=== PATIENT | female | born 1945 | race Caucasian/White ===

== ENCOUNTER 2020-09-11 22:47 | Inpatient (IN) | payer MEDICAID ==
[~2020-09-11] VITALS: Ht 157.5 cm; Wt 91.2 kg
[2020-09-11] MEDS ORDERED: ONDANSETRON 4MG ODT PO ONE (23:15)
[2020-09-11] MEDS ORDERED: HYDROCODONE/ACETAMINOPHEN 5/325MG TABLET PO ONE (23:15)
[2020-09-12] MEDS ORDERED: MORPHINE SULFATE 4 MG/ML CPJ (NOT FOR IM USE) IV ONE (04:00)
[2020-09-12] MEDS ORDERED: CEFTRIAXONE 1 G PREMIX 50 ML IV ONE (05:45)
[2020-09-12] MEDS ORDERED: AZITHROMYCIN 500 MG in DEXT 5% WATER 250 ML IV SCH (05:45)
[2020-09-12 08:19] LABS: BASOPHILS % 0.2 % (0.0-2.0); HEMOGLOBIN. 10.6 g/dL (12.0-16.0); MEAN CORPUSCULAR HEMOGLOBIN 28.8 pg (28.0-32.0); MEAN CORPUSCULAR VOLUME 86.6 fL (81.0-99.0); MEAN PLATELET VOLUME 8.6 fl (7.4-10.4); MONOCYTES % 6.4 % (2.0-8.0); NEUTROPHILS % 80.4 % (40.0-76.0); PLATELET 214 x1000/uL (130-400); RED BLOOD CELL COUNT 3.69 mill/uL (4.2-5.4); RED CELL DISTRIBUTION WIDTH 13.7 % (11.6-14.6)
[2020-09-12 08:21] LABS: CHLORIDE 104 mEq/L (98-107)
[2020-09-12 10:15] VITALS: BP 137/78
[2020-09-12] MEDS ORDERED: GINK120C PO (10:43)
[2020-09-12] MEDS ORDERED: LOSA50TA41 MT (10:43)
[2020-09-12] MEDS ORDERED: MELA5TAB19 MT (10:43)
[2020-09-12] MEDS ORDERED: METF500S7 PO (10:43)
[2020-09-12] MEDS ORDERED: TOPUD MT (10:43)
[2020-09-12] MEDS ORDERED: RISP0.2514 PO (10:43)
[2020-09-12] MEDS ORDERED: DONE23TA3 MT (10:43)
[2020-09-12] MEDS ORDERED: OLAN5TAB26 PO (10:43)
[2020-09-12 11:25] VITALS: BP 137/78
[2020-09-12] MEDS ORDERED: DEXTROSE 50% WATER 50ML SYRINGE IV PRN (11:45)
[2020-09-12 12:00] VITALS: BP 120/57
[2020-09-12] MEDS: INSULIN LISPRO 100 UNITS/ML SUBCUT SCH ×3 (12:05→21:00)
[2020-09-12] MEDS: BLOOD SUGAR DIAGNOSTIC STRIP TEST SCH ×3 (12:05→21:11)
[2020-09-12] MEDS: OLANZAPINE 5MG TABLET PO SCH (12:16)
[2020-09-12] MEDS: LOSARTAN POTASSIUM 50 MG TABLET PO SCH (12:16)
[2020-09-12] MEDS: MORPHINE SULFATE 2 MG/ML CPJ (NOT FOR IM USE) IV PRN ×2 (12:17→21:48)
[2020-09-12 16:00] VITALS: BP 119/65
[2020-09-12 20:00] VITALS: BP 113/50
[2020-09-12] MEDS: RISPERIDONE 0.25MG TABLET PO SCH ×2 (21:00→21:49)
[2020-09-13] VITALS: BP 114/60
[2020-09-13 04:00] VITALS: BP 103/54
[2020-09-13] MEDS: BLOOD SUGAR DIAGNOSTIC STRIP TEST SCH ×4 (06:20→20:28)
[2020-09-13] MEDS: INSULIN LISPRO 100 UNITS/ML SUBCUT SCH ×4 (06:32→20:29)
[2020-09-13] MEDS: MORPHINE SULFATE 2 MG/ML CPJ (NOT FOR IM USE) IV PRN ×2 (06:32→13:45)
[2020-09-13] MEDS ORDERED: BACITRACIN 15GM TUBE TOP ONE (07:11)
[2020-09-13] MEDS ORDERED: BUPIVACAINE HCL/PF 0.25% (2.5MG/ML) 10ML ONE ×2 (07:11→09:20)
[2020-09-13] MEDS ORDERED: VANCOMYCIN HCL 1 GM/VIAL ONE (07:11)
[2020-09-13] MEDS ORDERED: ONDANSETRON HCL 4MG/2ML INJ ONE (08:33)
[2020-09-13] MEDS ORDERED: PROPOFOL 200MG/20ML VIAL IV ONE (08:33)
[2020-09-13] MEDS ORDERED: SUCCINYLCHOLINE CHLORIDE 200MG/10ML IV ONE (08:33)
[2020-09-13] MEDS ORDERED: ROCURONIUM BROMIDE 10MG/ML VIAL 5ML IV ONE (08:33)
[2020-09-13] MEDS ORDERED: CEFAZOLIN SODIUM 1000MG/VIAL ONE (08:33)
[2020-09-13] MEDS ORDERED: GLYCOPYRROLATE 0.2 MG/ML 2ML VIAL ONE (08:33)
[2020-09-13] MEDS ORDERED: NEOSTIGMINE METHYLSULFATE 1MG/ML 10 ML VIAL ONE (08:33)
[2020-09-13] MEDS ORDERED: PHENYLEPHRINE HCL 10 MG/ML 1ML (IV VIAL) IV ONE (08:33)
[2020-09-13] MEDS ORDERED: SODIUM CHLORIDE 0.9% 10ML VIAL ONE (08:33)
[2020-09-13] MEDS ORDERED: EPHEDRINE SULFATE 50MG/ML VIAL ONE (08:33)
[2020-09-13] MEDS ORDERED: METOCLOPRAMIDE HCL 10MG/2ML VIAL ONE (08:33)
[2020-09-13] MEDS ORDERED: FENTANYL CITRATE/PF 50MCG/ML 2ML VIAL ONE (08:33)
[2020-09-13] MEDS ORDERED: MIDAZOLAM HCL 2 MG/2 ML VIAL ONE (08:33)
[2020-09-13] MEDS: LOSARTAN POTASSIUM 50 MG TABLET PO SCH (09:00)
[2020-09-13] MEDS: OLANZAPINE 5MG TABLET PO SCH (09:00)
[2020-09-13] MEDS ORDERED: MORPHINE SULFATE 2 MG/ML CPJ (NOT FOR IM USE) IV PRN (09:45)
[2020-09-13] MEDS ORDERED: SODIUM CHLORIDE 0.9% 1,000 ML IV ONE (09:45)
[2020-09-13] MEDS ORDERED: MEPERIDINE HCL/PF 25MG/ML CPJ IV PRN (09:45)
[2020-09-13] MEDS ORDERED: ONDANSETRON HCL 4MG/2ML INJ IV PRN (09:45)
[2020-09-13] MEDS ORDERED: HYDROMORPHONE HCL/PF 2MG/ML CPJ IV PRN (09:45)
[2020-09-13 12:00] VITALS: BP 126/63
[2020-09-13] MEDS: CEFAZOLIN 2,000 MG in DEXT 5% WATER 100 ML IV SCH (14:28)
[2020-09-13 16:00] VITALS: BP 140/58
[2020-09-13] MEDS: DOCUSATE SODIUM 100MG CAPSULE PO SCH (17:00)
[2020-09-13] MEDS: KETOROLAC 30MG/ML VIAL IV PRN (18:24)
[2020-09-13 19:16] LABS: CLARITY URINE CLEAR (CLEAR); COLOR URINE YELLOW (YELLOW); KETONES URINE NEGATIVE (NEGATIVE); LEUKOCYTE ESTERASE URINE NEGATIVE (NEGATIVE); NITRITE URINE NEGATIVE (NEGATIVE); OCCULT BLOOD URINE 1+ (NEGATIVE); PH URINE 5.5 (4.5-8.0); PROTEIN URINE 1+ (NEGATIVE); SPECIFIC GRAVITY URINE 1.024 (1.005-1.030); UROBILINOGEN URINE 0.2 E.U./dL (0.2-1.0)
[2020-09-13 20:00] VITALS: BP 113/53
[2020-09-13] MEDS: RISPERIDONE 0.25MG TABLET PO SCH (20:29)
[2020-09-14] VITALS: BP 105/66
[2020-09-14] MEDS: CEFAZOLIN 2,000 MG in DEXT 5% WATER 100 ML IV SCH ×4 (00:02→21:01)
[2020-09-14 04:00] VITALS: BP 140/50
[2020-09-14] MEDS: BLOOD SUGAR DIAGNOSTIC STRIP TEST SCH ×4 (05:21→21:01)
[2020-09-14] MEDS: INSULIN LISPRO 100 UNITS/ML SUBCUT SCH ×4 (05:42→21:00)
[2020-09-14 08:00] VITALS: BP 115/43
[2020-09-14] MEDS: LOSARTAN POTASSIUM 50 MG TABLET PO SCH ×2 (09:09→09:18)
[2020-09-14] MEDS: OLANZAPINE 5MG TABLET PO SCH (09:09)
[2020-09-14] MEDS: DOCUSATE SODIUM 100MG CAPSULE PO SCH ×2 (09:10→17:19)
[2020-09-14] MEDS: ACETAMINOPHEN 325MG TABLET PO PRN ×2 (09:17→17:40)
[2020-09-14 12:00] VITALS: BP 109/55
[2020-09-14] MEDS: KETOROLAC 30MG/ML VIAL IV PRN ×2 (14:17→20:51)
[2020-09-14 16:00] VITALS: BP 96/36
[2020-09-14 20:00] VITALS: BP 107/52
[2020-09-14] MEDS: RISPERIDONE 0.25MG TABLET PO SCH (20:50)
[2020-09-14] MEDS: ENOXAPARIN 40MG/0.4ML SYR SUBCUT SCH (21:05)
[2020-09-15] VITALS (7 sets, daily range): BP systolic 110–122; BP diastolic 39–56
[2020-09-15] MEDS: CEFAZOLIN 2,000 MG in DEXT 5% WATER 100 ML IV SCH ×3 (05:44→20:41)
[2020-09-15] MEDS: BLOOD SUGAR DIAGNOSTIC STRIP TEST SCH ×4 (05:44→20:43)
[2020-09-15] MEDS: INSULIN LISPRO 100 UNITS/ML SUBCUT SCH ×4 (05:45→20:43)
[2020-09-15] MEDS: OLANZAPINE 5MG TABLET PO SCH (08:22)
[2020-09-15] MEDS: DOCUSATE SODIUM 100MG CAPSULE PO SCH ×2 (08:22→17:05)
[2020-09-15] MEDS: LOSARTAN POTASSIUM 50 MG TABLET PO SCH (08:22)
[2020-09-15 08:34] LABS: BASOPHILS % 0.1 % (0.0-2.0); HEMATOCRIT. 23.7 % (36.0-48.0); HEMOGLOBIN. 7.8 g/dL (12.0-16.0); MEAN CORPUSCULAR HEMOGLOBIN 28.8 pg (28.0-32.0); MEAN CORPUSCULAR VOLUME 87.4 fL (81.0-99.0); MEAN PLATELET VOLUME 8.9 fl (7.4-10.4); MONOCYTES % 8.4 % (2.0-8.0); NEUTROPHILS % 68.5 % (40.0-76.0); PLATELET 160 x1000/uL (130-400); RED BLOOD CELL COUNT 2.71 mill/uL (4.2-5.4); RED CELL DISTRIBUTION WIDTH 13.8 % (11.6-14.6)
[2020-09-15 08:44] LABS: CHLORIDE 109 mEq/L (98-107)
[2020-09-15 08:50] LABS: PHOSPHORUS 2.7 mg/dL (2.5-4.9)
[2020-09-15] MEDS: KETOROLAC 30MG/ML VIAL IV PRN (11:15)
[2020-09-15] MEDS: HYDROCODONE/ACETAMINOPHEN 5/325MG TABLET PO PRN (15:09)
[2020-09-15] MEDS: ENOXAPARIN 40MG/0.4ML SYR SUBCUT SCH (20:41)
[2020-09-15] MEDS: RISPERIDONE 0.25MG TABLET PO SCH (20:41)
[2020-09-16] VITALS: BP 136/79
[2020-09-16 04:00] VITALS: BP 130/48
[2020-09-16] MEDS: CEFAZOLIN 2,000 MG in DEXT 5% WATER 100 ML IV SCH ×3 (05:28→21:11)
[2020-09-16] MEDS: BLOOD SUGAR DIAGNOSTIC STRIP TEST SCH ×4 (07:19→20:32)
[2020-09-16] MEDS: INSULIN LISPRO 100 UNITS/ML SUBCUT SCH ×4 (07:19→20:33)
[2020-09-16 08:00] VITALS: BP 135/53
[2020-09-16] MEDS: LOSARTAN POTASSIUM 50 MG TABLET PO SCH (08:17)
[2020-09-16] MEDS: HYDROCODONE/ACETAMINOPHEN 5/325MG TABLET PO PRN ×2 (08:17→15:56)
[2020-09-16] MEDS: DOCUSATE SODIUM 100MG CAPSULE PO SCH ×2 (08:17→16:13)
[2020-09-16] MEDS: OLANZAPINE 5MG TABLET PO SCH (08:17)
[2020-09-16 12:00] VITALS: BP 108/44
[2020-09-16 16:00] VITALS: BP 137/98
[2020-09-16 19:29] LABS: BASOPHILS % 0.2 % (0.0-2.0); HEMATOCRIT. 22.9 % (36.0-48.0); HEMOGLOBIN. 7.8 g/dL (12.0-16.0); LYMPHOCYTES % 26.8 % (20.0-50.0); MEAN CORPUSCULAR HEMOGLOBIN 29.6 pg (28.0-32.0); MEAN CORPUSCULAR VOLUME 86.5 fL (81.0-99.0); MEAN PLATELET VOLUME 8.5 fl (7.4-10.4); MONOCYTES % 8.9 % (2.0-8.0); NEUTROPHILS % 64.1 % (40.0-76.0); PLATELET 209 x1000/uL (130-400); RED BLOOD CELL COUNT 2.64 mill/uL (4.2-5.4); RED CELL DISTRIBUTION WIDTH 13.4 % (11.6-14.6)
[2020-09-16 19:39] LABS: CHLORIDE 109 mEq/L (98-107)
[2020-09-16 20:00] VITALS: BP 124/53
[2020-09-16] MEDS: ENOXAPARIN 40MG/0.4ML SYR SUBCUT SCH (21:11)
[2020-09-16] MEDS: RISPERIDONE 0.25MG TABLET PO SCH (21:11)
[2020-09-16] MEDS: ACETAMINOPHEN 325MG TABLET PO PRN (23:05)
[2020-09-17] VITALS: BP 130/62
[2020-09-17 04:00] VITALS: BP 141/54
[2020-09-17] MEDS: CEFAZOLIN 2,000 MG in DEXT 5% WATER 100 ML IV SCH ×3 (05:52→22:07)
[2020-09-17] MEDS: BLOOD SUGAR DIAGNOSTIC STRIP TEST SCH ×4 (07:31→21:00)
[2020-09-17] MEDS: INSULIN LISPRO 100 UNITS/ML SUBCUT SCH ×4 (07:31→22:06)
[2020-09-17 08:00] VITALS: BP 141/61
[2020-09-17] MEDS: OLANZAPINE 5MG TABLET PO SCH (09:43)
[2020-09-17] MEDS: DOCUSATE SODIUM 100MG CAPSULE PO SCH ×2 (09:43→18:27)
[2020-09-17] MEDS: LOSARTAN POTASSIUM 50 MG TABLET PO SCH (09:44)
[2020-09-17 13:00] VITALS: BP 131/56
[2020-09-17 16:00] VITALS: BP 137/58
[2020-09-17] MEDS: ACETAMINOPHEN 325MG TABLET PO PRN (19:52)
[2020-09-17 20:00] VITALS: BP 137/52
[2020-09-17] MEDS: ENOXAPARIN 40MG/0.4ML SYR SUBCUT SCH (22:05)
[2020-09-17] MEDS: RISPERIDONE 0.25MG TABLET PO SCH (22:05)
[2020-09-18] VITALS: BP 126/64
[2020-09-18 04:00] VITALS: BP 118/57
[2020-09-18] MEDS: CEFAZOLIN 2,000 MG in DEXT 5% WATER 100 ML IV SCH ×3 (05:05→21:17)
[2020-09-18] MEDS: ACETAMINOPHEN 325MG TABLET PO PRN (05:05)
[2020-09-18] MEDS: BLOOD SUGAR DIAGNOSTIC STRIP TEST SCH ×4 (06:26→21:45)
[2020-09-18] MEDS: INSULIN LISPRO 100 UNITS/ML SUBCUT SCH ×4 (06:36→21:00)
[2020-09-18 09:42] VITALS: BP 127/50
[2020-09-18] MEDS: LOSARTAN POTASSIUM 50 MG TABLET PO SCH (09:49)
[2020-09-18] MEDS: DOCUSATE SODIUM 100MG CAPSULE PO SCH ×2 (09:49→17:58)
[2020-09-18] MEDS: OLANZAPINE 5MG TABLET PO SCH (09:49)
[2020-09-18 12:23] VITALS: BP 130/53
[2020-09-18 16:09] VITALS: BP 128/51
[2020-09-18 20:00] VITALS: BP 136/50
[2020-09-18] MEDS: ENOXAPARIN 40MG/0.4ML SYR SUBCUT SCH (21:17)
[2020-09-18] MEDS: RISPERIDONE 0.25MG TABLET PO SCH (21:17)
[2020-09-19] VITALS: BP 125/55
[2020-09-19] MEDS: ACETAMINOPHEN 325MG TABLET PO PRN ×2 (03:21→10:04)
[2020-09-19 04:00] VITALS: BP 143/62
[2020-09-19] MEDS: BLOOD SUGAR DIAGNOSTIC STRIP TEST SCH ×4 (06:11→20:48)
[2020-09-19] MEDS: INSULIN LISPRO 100 UNITS/ML SUBCUT SCH ×4 (06:11→20:48)
[2020-09-19 07:47] VITALS: BP 118/52
[2020-09-19] MEDS: DOCUSATE SODIUM 100MG CAPSULE PO SCH ×2 (10:03→18:26)
[2020-09-19] MEDS: LOSARTAN POTASSIUM 50 MG TABLET PO SCH (10:03)
[2020-09-19 11:50] VITALS: BP 125/59
[2020-09-19] MEDS: OLANZAPINE 5MG TABLET PO SCH (12:59)
[2020-09-19 16:33] VITALS: BP 120/61
[2020-09-19] MEDS: RISPERIDONE 0.25MG TABLET PO SCH (20:45)
[2020-09-19] MEDS: ENOXAPARIN 40MG/0.4ML SYR SUBCUT SCH (20:48)
[2020-09-19 21:24] VITALS: BP 113/42
[2020-09-20] VITALS (8 sets, daily range): BP systolic 108–146; BP diastolic 50–68
[2020-09-20] MEDS: BLOOD SUGAR DIAGNOSTIC STRIP TEST SCH ×4 (07:04→20:52)
[2020-09-20] MEDS: INSULIN LISPRO 100 UNITS/ML SUBCUT SCH ×4 (07:04→20:52)
[2020-09-20] MEDS: LOSARTAN POTASSIUM 50 MG TABLET PO SCH (10:10)
[2020-09-20] MEDS: DOCUSATE SODIUM 100MG CAPSULE PO SCH ×2 (10:10→16:57)
[2020-09-20] MEDS: OLANZAPINE 5MG TABLET PO SCH (10:10)
[2020-09-20] MEDS: ACETAMINOPHEN 325MG TABLET PO PRN (10:11)
[2020-09-20] MEDS: RISPERIDONE 0.25MG TABLET PO SCH (20:48)
[2020-09-20] MEDS: ENOXAPARIN 40MG/0.4ML SYR SUBCUT SCH (20:55)
[2020-09-21] VITALS: BP 139/59
[2020-09-21 04:00] VITALS: BP 125/60
[2020-09-21] MEDS: INSULIN LISPRO 100 UNITS/ML SUBCUT SCH (06:48)
[2020-09-21] MEDS: BLOOD SUGAR DIAGNOSTIC STRIP TEST SCH (06:48)
[2020-09-21 08:00] VITALS: BP 113/66
[2020-09-21] MEDS: LOSARTAN POTASSIUM 50 MG TABLET PO SCH (08:40)
[2020-09-21] MEDS: OLANZAPINE 5MG TABLET PO SCH (08:40)
[2020-09-21] MEDS: DOCUSATE SODIUM 100MG CAPSULE PO SCH (08:40)
[2020-09-21 12:00] VITALS: BP 121/50
[2020-09-21 13:01] VITALS: BP 121/50
== END 2020-09-21 14:35 | disposition home health service (06) | DRG 308 ==
LOC: ER 22:47 → 8WST 09-12 06:29 → ENRESERV 09-12 07:39
PROVIDERS: ADMIT Internal Medicine; ATTEND Internal Medicine
PROC: 0QS704Z Reposition Left Upper Femur with Internal Fixation Device, Open Approach (ICD-10-PCS; principal; 2020-09-12)
DX: S72.142A Displaced intertrochanteric fracture of left femur, initial encounter for closed fracture (principal); E87.2 Acidosis; E11.9 Type 2 diabetes mellitus without complications; F03.90 Unspecified dementia, unspecified severity, without behavioral disturbance, psychotic disturbance, mood disturbance, and anxiety; I10 Essential (primary) hypertension; W01.0XXA Fall on same level from slipping, tripping and stumbling without subsequent striking against object, initial encounter; Z20.822 Contact with and (suspected) exposure to COVID-19; Y92.009 Unspecified place in unspecified non-institutional (private) residence as the place of occurrence of the external cause; Z98.1 Arthrodesis status; Z88.0 Allergy status to penicillin; Z79.84 Long term (current) use of oral hypoglycemic drugs; Z79.899 Other long term (current) drug therapy; Z79.1 Long term (current) use of non-steroidal anti-inflammatories (NSAID); Y93.89 Activity, other specified; Y99.8 Other external cause status
CPT/HCPCS: 36415; 71045; 73030; 73060; 73502; 73560; 76000; 80053; 81003; 82962; 83036; 83605; 83735; 83880; 84100; 84484; 85025; 87426; 93005; 97110; 97162; 97530; 99285; C1713; C1893; J0330; J0456; J0690; J0696; J1170; J1650; J1815; J1885; J2250; J2270; J2370; J2405; J2704; J2710; J2765; J3010; J3370; J3490; J7040; J7060; Q0162